=== PATIENT | female | born 1950 | race Caucasian/White ===

== ENCOUNTER 2022-07-06 08:21 | Outpatient (CLI) | payer MEDICARE, BC | END 2022-07-06 23:59 | disposition home or self-care (01) | LOC: WOU 08:21 | PROVIDERS: ATTEND Surgery | DX: N62 Hypertrophy of breast (principal); R92.8 Other abnormal and inconclusive findings on diagnostic imaging of breast | CPT/HCPCS: G0463 ==

== ENCOUNTER 2023-10-18 05:57 | Inpatient (IN) | payer MEDICARE, BC ==
[~2023-10-18] VITALS: Ht 162.6 cm; Wt 70.8 kg
[2023-10-18] MEDS ORDERED: ANESTHESIA TRAY IN PYXIS 1 EA TRAY MC ONE (07:16)
[2023-10-18] MEDS ORDERED: GENTAMICIN 80 MG/2 ML VIAL ONE (07:16)
[2023-10-18] MEDS ORDERED: VANCOMYCIN 1 GM VIAL ONE (07:17)
[2023-10-18] MEDS ORDERED: LIDOCAINE 1% INJ 50 ML MDV IJ ONE (07:17)
[2023-10-18] MEDS ORDERED: LIDOCAINE 1%-EPI 1:100,000 20 ML VIAL ONE ×2 (07:17→08:16)
[2023-10-18] MEDS ORDERED: BUPIVACAINE 0.5 % PF 150 MG/30 ML VIAL ONE (07:17)
[2023-10-18] MEDS ORDERED: ROCURONIUM BROMIDE 50 MG/5 ML ONE (07:34)
[2023-10-18] MEDS ORDERED: FENTANYL PF 250MCG/5ML AMPUL ONE (07:34)
[2023-10-18] MEDS ORDERED: FENTANYL PF 100MCG/2ML AMPUL ONE (11:30)
[2023-10-18] MEDS ORDERED: INSULIN REGULAR, HUMAN 100 UNIT/ML 3 ML VIAL SQ PRN (14:00)
[2023-10-18] MEDS ORDERED: MAG HYDROX/AL HYDROX/SIMETH 30 ML UDC PO PRN (14:00)
[2023-10-18] MEDS ORDERED: DEXTROSE 50%-WATER 50 ML DISP.SYRIN IV PRN (14:00)
[2023-10-18] MEDS ORDERED: Z GUARD REMEDY 4 OZ OINT TP PRN (14:00)
[2023-10-18] MEDS ORDERED: ACETAMINOPHEN 325 MG TABLET PO PRN (14:00)
[2023-10-18] MEDS: HYDROCODONE/APAP 10/325MG TABLET PO PRN (14:07)
[2023-10-18 16:00] VITALS: BP 112/60; TEMP 97.6; O2SAT 100
[2023-10-18] MEDS: BLOOD SUGAR DIAGNOSTIC 1 EACH STRIP IN SCH (17:37)
[2023-10-18] MEDS: ONDANSETRON HCL/PF 4 MG/2 ML VIAL IVP PRN (19:42)
[2023-10-18 20:00] VITALS: BP 147/66; TEMP 98.2; O2SAT 97
[2023-10-19 06:53] LABS: BASOPHILS % (AUTO) 0.6 % (0.0-2.0); EOSINOPHILS # (AUTO) 0.1 K/uL (0.0-0.7); EOSINOPHILS % (AUTO) 1.2 % (0.0-6.0); HEMATOCRIT 32 % (33-45); HEMOGLOBIN 10.8 g/dL (11.5-14.8); LYMPHOCYTES # (AUTO) 0.4 K/uL (0.8-4.8); LYMPHOCYTES % (AUTO) 8.1 % (20.0-44.0); MEAN CORPUSCULAR HEMOGLOBIN 28 PG (26.0-33.0); MEAN CORPUSCULAR HGB CONC 34 g/dl (31.0-36.0); MEAN CORPUSCULAR VOLUME 84 fL (82-100); MONOCYTES # (AUTO) 0.6 K/uL (0.1-1.30); MONOCYTES % (AUTO) 10.5 % (2.0-12.0); NEUTROPHILS # (AUTO) 4.2 K/uL (1.8-8.9); NEUTROPHILS % (AUTO) 79.6 % (43.0-81.0); PLATELET COUNT (AUTO) 236 K/uL (150-450); RED BLOOD CELL COUNT(AUTO) 3.83 MIL/uL (4.0-5.2); RED CELL DISTRIBUTION WIDTH 13.8 % (11.5-15.0); WHITE BLOOD COUNT (AUTO) 5.3 K/uL (4.3-11.0)
[2023-10-19 07:08] LABS: CALCIUM, SERUM 8.7 mg/dL (8.5-10.1); CARBON DIOXIDE 30 mmol/L (21-32); CHLORIDE 102 mmol/L (98-107); CREATININE 0.7 mg/dL (0.6-1.3); GLUCOSE 120 mg/dL (74-106); POTASSIUM 4.4 mmol/L (3.5-5.1); SODIUM SERUM 136 mmol/L (136-145); UREA NITROGEN, BLOOD 10 mg/dL (7-18)
[2023-10-19] MEDS: PANTOPRAZOLE 40 MG TABLET.DR PO SCH (08:23)
== END 2023-10-19 13:19 | disposition home or self-care (01) | DRG 585 ==
LOC: DS 05:57 → MED 11:46
PROVIDERS: ADMIT Nurse Practitioner Family; ATTEND Nurse Practitioner Family
PROC: 0HBV0ZZ Excision of Bilateral Breast, Open Approach (ICD-10-PCS; principal; 2023-10-18)
DX: N62 Hypertrophy of breast (principal); E11.51 Type 2 diabetes mellitus with diabetic peripheral angiopathy without gangrene; E03.9 Hypothyroidism, unspecified; E78.5 Hyperlipidemia, unspecified; I10 Essential (primary) hypertension; Z82.49 Family history of ischemic heart disease and other diseases of the circulatory system; Z95.820 Peripheral vascular angioplasty status with implants and grafts
CPT/HCPCS: 36415; 80048-TC; 82962-TC; 83735-TC; 84100-TC; 85025-TC; 88305-TC; 94799-TC; G0378; J0690; J1580; J1815; J1885; J2405; J2704; J3010; J3370; J3490